=== PATIENT | female | born 1975 | race Caucasian/White ===

== ENCOUNTER 2016-07-30 08:19 | Emergency (ER) | payer OTHER ==
[2016-07-30] MEDS ORDERED: BUPR100T7 PO (08:43)
[2016-07-30] MEDS ORDERED: GABA-585 PO (08:44)
[2016-07-30] MEDS ORDERED: HYDR10TA2 PO (08:44)
[2016-07-30] MEDS ORDERED: nasocort (08:45)
[2016-07-30] MEDS ORDERED: LURA40TA PO (08:45)
[2016-07-30] MEDS ORDERED: IBUP600T16 PO (08:49)
--- NOTE | 2016-07-30 08:52 | ED.ADGEN ---
Past History Past Medical History: No Pertinent History Adult General Chief Complaint Chief Complaint R calf pain [facility] HPI Patient is a 41 year old female who presents with R calf pain. Patient states the pain started abruptly after performing yoga maneuver that structure right calf. She's had ongoing pain, not relieved with ibuprofen. She states it feels okay when she lays in bed but when she walks on it it causes the pain to worsen. She had some swelling that improved after wearing compression socks. No history of DVT reported. She had no pain prior to performing the maneuver during yoga. Review of Systems Review of Systems Constitutional: Denies fever or chills [] Eyes: Denies change in visual acuity, redness, or eye pain [] HENT: Denies nasal congestion or sore throat [] Respiratory: Denies cough or shortness of breath [] Cardiovascular: No additional information not addressed in HPI [] GI: Denies abdominal pain, nausea, vomiting, bloody stools or diarrhea [] : Denies dysuria or hematuria [] Musculoskeletal: Denies back pain Integument: Denies rash or skin lesions [] Neurologic: Denies headache, focal weakness or sensory changes [] Allergies Allergies Allergies Coded Allergies Type Severity Reaction Last Updated Verified Penicillins Allergy Unknown 07/30/16 Yes Physical Exam Physical Exam Constitutional: Well developed, well nourished, no acute distress, non-toxic appearance. [] HENT: Normocephalic, atraumatic Eyes: conjunctiva normal, no discharge. [] Neck: Normal range of motion, no tenderness, supple, no stridor. [] Cardiovascular:Heart rate regular with regular rhythm Lungs & Thorax: no resp distress Extremities: RLE without appreciable edema, erythema, or increased warm. proximal calf ttp with passive stretching and palpation, no palpable cords. DP pulse intact, joints FROM, no bony ttp or deformity, wiggles toes. Neurologic: Alert and oriented X 3, normal motor function, normal sensory function, no focal deficits noted. [] Psychologic: Affect normal, judgement normal, mood normal. [] EKG EKG [] Radiology/Procedures Radiology/Procedures [] Course & Med Decision Making Course & Med Decision Making Pertinent Labs and Imaging studies reviewed. (See chart for details) based on history and mechanism, sounds as though pt pulled a muscle. No indication that pt has DVT or at risk for DVT. No need to imaging at this time , recommended RICE therapy, steroids, 2mg valium for muscle relaxer. Stressed importance of returning for reevaluation if pt has worsening symptoms and need to f/u with PCP if symptoms persisted. Offered DVT study at this time, although I think unlikely, and pt declined. Final Impression Final Impression Calf pain with pulled muscle likely[] Problems: Dragon Disclaimer Dragon Disclaimer This electronic medical record was generated, in whole or in part, using a voice recognition dictation system. HEIDI DUMONT MD Jul 30, 2016 08:52
[2016-07-30] MEDS ORDERED: DIAZ2TAB PO (08:53)
[2016-07-30 09:10] VITALS: BP 138/97
== END 2016-07-30 09:10 | disposition home or self-care (01) ==
LOC: ER 08:19
DX: M79.661 Pain in right lower leg (principal); Z88.0 Allergy status to penicillin; X58.XXXA Exposure to other specified factors, initial encounter; Y93.42 Activity, yoga; Y92.89 Other specified places as the place of occurrence of the external cause; Y99.8 Other external cause status
CPT/HCPCS: 99283

== ENCOUNTER 2016-08-25 08:59 | Emergency (ER) | payer OTHER ==
[~2016-08-25] VITALS: Ht 157.5 cm; Wt 70.8 kg
[~2016-08-25 08:59] MED LIST: BUPR100T7 PO; DIAZ2TAB PO; GABA-585 PO; HYDR10TA2 PO; IBUP600T16 PO; LURA40TA PO; nasocort
[2016-08-25 09:05] VITALS: BP 132/82
[2016-08-25] MEDS ORDERED: KETOROLAC 30 MG/ML VIAL. IM ONE (09:45)
--- NOTE | 2016-08-25 10:07 | ED.ADGEN ---
Past History Past Medical History: Bipolar Past Surgical History: , Hysterectomy Alcohol Use: Occasionally Drug Use: None Adult General Chief Complaint Chief Complaint Pt R groin/hip pain HPI HPI Patient is a 41 year old F who presents with R hip/groin pain. She states this AM was walking her [place] dog when pulled then "I did the splits" and fell. Since approx 8am when incident happened now has pain in groin. Able to stand but walking and moving leg hurts. Recently had injury to R calf from yoga and that is better. Pt denies hitting head and no LOC. Pt denies injury elsewhere. Pt no weakness, numbness or tingling in legs. Pt denies back, neck , chest or abdominal pain Review of Systems Review of Systems Constitutional: Denies fever or chills Eyes: Denies change in visual acuity, redness, or eye pain HENT: Denies nasal congestion or sore throat Respiratory: Denies cough or shortness of breath Cardiovascular: No additional information not addressed in HPI GI: Denies abdominal pain, nausea, vomiting, bloody stools or diarrhea : Denies dysuria or hematuria Musculoskeletal: Denies back pain Integument: Denies rash Neurologic: Denies headache, focal weakness or sensory changes Current Medications Current Medications Current Medications Medications (Trade) Dose Ordered Sig/Kenan Start Time Stop Time Status Last Admin Dose Admin Acetaminophen/ Hydrocodone Bitart (Lortab 5/325) 2 tab 1X ONCE 08/25/16 10:30 08/25/16 10:31 DC 08/25/16 10:03 2 TAB Ketorolac Tromethamine (Toradol) 30 mg 1X ONCE 08/25/16 09:45 08/25/16 09:46 DC 08/25/16 09:29 30 MG Allergies Allergies Allergies Coded Allergies Type Severity Reaction Last Updated Verified Penicillins Allergy Unknown 07/30/16 Yes Physical Exam Physical Exam Constitutional: Well developed, well nourished, no acute distress, non-toxic appearance. HENT: Normocephalic, atraumatic Skin: Warm, dry, no erythema, no rash. Back: No tenderness, no CVA tenderness. Extremities: R hip tender anterior, no pubis tenderness, then R groin/muscle tenderness to palpation Vascular DP and PT pulses 2+ Neurologic: Alert and oriented X 3, normal motor function, normal sensory function, no focal deficits noted. Psychologic: Affect normal, judgement normal, mood normal. Current Patient Data Vital Signs Vital Signs Date Time Temp Pulse Resp B/P (MAP) Pulse Ox O2 Delivery O2 Flow Rate FiO2 08/25/16 10:03 16 98 08/25/16 09:05 97.7 88 Room Air EKG EKG [] Radiology/Procedures Radiology/[place] [address] IMAGING REPORT Signed PATIENT: ZONIA VIGIL ACCOUNT: [id number] : 1975 LOCATION: ER AGE: 41 SEX: F EXAM STATUS: DEP ER ORD. PHYSICIAN: BELLA VICTORIA MD REASON: r hip pain, s/p fall PROCEDURE: HIP RIGHT 2V WITH PELVIS Indication: Right hip pain, fall. Time of exam 0933 hours. Femoral acetabular alignment is normal bilaterally. The joint space is well-maintained. The femoral heads and necks appear intact and no fractures are seen. The rami are unremarkable. Impression: No acute bony abnormality is detected. DICTATED AND SIGNED BY: JESSICA CARRILLO MD DATE: 08/25/16 1500 CC: BELLA VICTORIA MD; LI LIEBERMAN DO, MPH ~ [] Course & Med Decision Making Course & Med Decision Making Pertinent Labs and Imaging studies reviewed. (See chart for details) Pt received Toradol IM in ER with little pain relief. Pt then received [place] 5/325 2 tabs in ER Discussed with patient that Xrays negative Clinically and on exam pt has strained groin muscle and hip, neurovascularlly intact Will discharge with Naprosyn and only if needed next 2 days [place] and Valium Stressed importance of follow up Offered pt crutches but pt declined Final Impression Final Impression R hip and groin strain Problems: Dragon Disclaimer Dragon Disclaimer This electronic medical record was generated, in whole or in part, using a voice recognition dictation system. BELLA VICTORIA MD August 25, 2016 10:07
[2016-08-25] MEDS ORDERED: HYDROcodone/APAP 5/325MG 1 TAB TABLET PO ONE (10:30)
--- NOTE | 2016-08-25 15:03 | RAD ---
Indication: Right hip pain, fall. Time of exam 0933 hours. Femoral acetabular alignment is normal bilaterally. The joint space is well-maintained. The femoral heads and necks appear intact and no fractures are seen. The rami are unremarkable. Impression: No acute bony abnormality is detected.
== END 2016-08-25 10:58 | disposition home or self-care (01) ==
LOC: ER 08:59
DX: S39.011A Strain of muscle, fascia and tendon of abdomen, initial encounter (principal); S76.011A Strain of muscle, fascia and tendon of right hip, initial encounter; Z88.0 Allergy status to penicillin; W19.XXXA Unspecified fall, initial encounter; Y93.01 Activity, walking, marching and hiking; Y99.8 Other external cause status; Y92.89 Other specified places as the place of occurrence of the external cause
CPT/HCPCS: 73502; 96372; 99284; J1885

== ENCOUNTER 2016-10-28 11:57 | Emergency (ER) | payer OTHER ==
[~2016-10-28] VITALS: Ht 157.5 cm; Wt 72.5 kg
--- NOTE | 2016-10-28 12:19 | ED.ADGEN ---
Past History Past Medical History: Bipolar Past Surgical History: , Hysterectomy Alcohol Use: Occasionally Drug Use: None Adult General Chief Complaint Chief Complaint Leg pain HPI HPI Patient is a 41 year old female who presents with left blue pain. She states that she has been working out a lot and develop blue splints on bilateral legs and took a day off but then had it again yesterday and then this morning tried to also she states is the left anterior blue that hurts and is a spot about 2 cm in diameter. She states she's been taking 800 mg Motrin the last several days but it has not been controlling her pain. She denies any calf pain tenderness, shortness of breath chest pain. She states otherwise been eating and drinking well without any issues. Review of Systems Review of Systems Constitutional: Denies fever or chills [] Eyes: Denies change in visual acuity, redness, or eye pain [] HENT: Denies nasal congestion or sore throat [] Respiratory: Denies cough or shortness of breath [] Cardiovascular: No additional information not addressed in HPI [] GI: Denies abdominal pain, nausea, vomiting, bloody stools or diarrhea [] : Denies dysuria or hematuria [] Musculoskeletal: Denies back pain, positive for anterior blue pain on the left leg. Integument: Denies rash or skin lesions [] Neurologic: Denies headache, focal weakness or sensory changes [] Endocrine: Denies polyuria or polydipsia [] Allergies Allergies Allergies Coded Allergies Type Severity Reaction Last Updated Verified Penicillins Allergy Unknown 07/30/16 Yes Physical Exam Physical Exam Constitutional: Well developed, well nourished, no acute distress, non-toxic appearance. [] HENT: Normocephalic, atraumatic, bilateral external ears normal, oropharynx moist, no oral exudates, nose normal. [] Eyes: PERRLA, EOMI, conjunctiva normal, no discharge. [] Neck: Normal range of motion, no tenderness, supple, no stridor. [] Cardiovascular:Heart rate regular rhythm, no murmur [] Lungs & Thorax: Bilateral breath sounds clear to auscultation [] Abdomen: Bowel sounds normal, soft, no tenderness, no masses, no pulsatile masses. [] Skin: Warm, dry, no erythema, no rash. [] Back: No tenderness, no CVA tenderness. [] Extremities: Tender palpation anterior blue on the left, no calf tenderness, dorsal pedis pulse 2+, no cyanosis, no clubbing, ROM intact, no edema. [] Neurologic: Alert and oriented X 3, normal motor function, normal sensory function, no focal deficits noted. [] Psychologic: Affect normal, judgement normal, mood normal. [] Current Patient Data Vital Signs Vital Signs Date Time Temp Pulse Resp B/P (MAP) Pulse Ox O2 Delivery O2 Flow Rate FiO2 10/28/16 12:27 98.4 87 20 97 Room Air EKG EKG [] Radiology/Procedures Radiology/Procedures [] Course & Med Decision Making Course & Med Decision Making Pertinent Labs and Imaging studies reviewed. (See chart for details) She has 0 risk factors for a DVT. Is not smoke she's not had a history of DVT, she is not on control pills. Her pain is the anterior tibia which is consistent with her blue splints. She is on Motrin 800 mg 3 times daily she is encouraged to push fluids with this. She's also be discharged with 20 tablets of [place]. She is instructed to rest over the next several days until her blue splint resolved completely. Return precautions given she is agreeable to the plan discharged in stable condition. Final Impression Final Impression Left lower show many pain Problems: Dragon Disclaimer Dragon Disclaimer This electronic medical record was generated, in whole or in part, using a voice recognition dictation system. LEN CURIEL MD Oct 28, 2016 12:19
[2016-10-28 12:27] VITALS: BP 156/97
== END 2016-10-28 12:43 | disposition home or self-care (01) ==
LOC: ER 11:57
DX: M79.662 Pain in left lower leg (principal); F31.9 Bipolar disorder, unspecified; Z88.0 Allergy status to penicillin
CPT/HCPCS: 99283

== ENCOUNTER 2019-06-23 07:25 | Emergency (ER) | payer OTHER ==
[~2019-06-23] VITALS: Ht 157.5 cm; Wt 89.2 kg
[2019-06-23 07:42] VITALS: BP 144/90
--- NOTE | 2019-06-23 07:59 | PHYS DOC ---
Past History Past Medical History: Bipolar, Hypertension Past Surgical History: Cholecystectomy, Hysterectomy, Oophorectomy Alcohol Use: Occasionally Drug Use: None Adult General Chief Complaint Chief Complaint: FEVER [facility] HPI Patient is a 44-year-old female who presented to ER today for evaluation of body aches, flulike symptoms, fever and chill, sore throat started yesterday. Patient denies any abdominal pain, no nausea or vomiting. Patient, no headache, no neck pain. Patient took some ibuprofen at 5 AM this morning. Patient also has dried cough. Patient also complained of left ear pain. Review of Systems Review of Systems ALL other ROS is negative unless otherwise noted in HPI Constitutional: Positive for fever or chills [] Eyes: Denies change in visual acuity, redness, or eye pain [] HENT: Denies nasal congestion. Positive for sorethroat and left ear pain Respiratory: Positive for cough no shortness of air. Cardiovascular: No additional information not addressed in HPI [] GI: Denies abdominal pain, nausea, vomiting, bloody stools or diarrhea [] : Denies dysuria or hematuria [] Musculoskeletal: Positive for back pain or joint pain [] Integument: Denies rash or skin lesions [] Neurologic: Denies headache, focal weakness or sensory changes [] Endocrine: Denies polyuria or polydipsia [] All other systems were reviewed and found to be within normal limits, except as documented in this note. Current Medications Current Medications Current Medications Medications (Trade) Dose Ordered Sig/Kenan Start Time Stop Time Status Last Admin Dose Admin Acetaminophen (Tylenol) 1,000 mg 1X ONCE 06/23/19 08:00 06/23/19 08:01 Allergies Allergies Allergies Coded Allergies Type Severity Reaction Last Updated Verified Penicillins Allergy Unknown 07/30/16 Yes Physical Exam Physical Exam Constitutional: Well developed, well nourished, no acute distress, non-toxic appearance. [] HENT: Normocephalic, atraumatic, bilateral external ears normal, oropharynx moist with erythema, no oral exudates, nose normal. LEFT TM IS BULGING AND ERYTHEMA. Eyes: PERRLA, EOMI, conjunctiva normal, no discharge. [] Neck: Normal range of motion, no tenderness, supple, no stridor. [] Cardiovascular:Heart rate regular rhythm, no murmur [] Lungs & Thorax: Bilateral breath sounds clear to auscultation [] Abdomen: Bowel sounds normal, soft, no tenderness, no masses, no pulsatile masses. [] Skin: Warm, dry, no erythema, no rash. [] Back: No tenderness, no CVA tenderness. [] Extremities: No tenderness, no cyanosis, no clubbing, ROM intact, no edema. [] Neurologic: Alert and oriented X 3, normal motor function, normal sensory function, no focal deficits noted. [] Psychologic: Affect normal, judgement normal, mood normal. [] Current Patient Data Vital Signs Vital Signs Date Time Temp Pulse Resp B/P (MAP) Pulse Ox O2 Delivery O2 Flow Rate FiO2 06/23/19 07:42 99.2 109 16 144/90 (108) 95 Room Air Lab Results Laboratory Tests Test 06/23/19 07:46 Influenza Type A (Rapid) Negative Influenza Type B (Rapid) Negative Current Medications Medications (Trade) Dose Ordered Sig/Kenan Route PRN Reason Start Time Stop Time Status Last Admin Dose Admin Acetaminophen (Tylenol) 1,000 mg 1X ONCE PO 06/23/19 08:00 06/23/19 08:01 DC EKG EKG [] Radiology/Procedures Radiology/Procedures [] Course & Med Decision Making Course & Med Decision Making Pertinent Labs and Imaging studies reviewed. (See chart for details) [] Dragon Disclaimer Dragon Disclaimer This electronic medical record was generated, in whole or in part, using a voice recognition dictation system. Departure Departure: Impression: Primary Impression: Left otitis media Additional Impression: Upper respiratory disease Disposition: HOME, SELF-CARE Condition: STABLE Referrals: LILLIE PORTILLO MD (PCP) FOLLOW UP WITH YOUR DOCTOR THIS WEEK. Patient Instructions: Otitis Media, Adult, Upper Respiratory Infection, Adult Additional Instructions: Thank you for visiting our Emergency Department. We appreciate you trusting us with your care. If any additional problems come up don't hesitate to return to visit us. Please follow up with your primary care provider so they can plan a dditional care if needed and know about the problem that you had. If symptoms worsen come back to the Emergency Department. Any concerning symptoms that start such as chest pain, shortness of air, weakness or numbness on one side of the body, running high fevers or any other concerning symptoms return to the ER. Scripts Azithromycin (ZITHROMAX) 250 Mg Tablet 1 PKG PO UD for OTITIS MEDIA, #6 TAB Prov: KRISTY LYNCH DO 06/23/19 Problem Qualifiers KRISTY LYNCH DO Jun 23, 2019 07:59
[2019-06-23 08:15] LABS: INFLUENZA A PATIENT NEGATIVE (NEGATIVE); INFLUENZA B PATIENT NEGATIVE (NEGATIVE)
[2019-06-23] MEDS: ACETAMINOPHEN 500 MG TABLET PO ONE (08:26)
[2019-06-23] MEDS ORDERED: AZIT250T PO (08:26)
== END 2019-06-23 08:35 | disposition home or self-care (01) ==
LOC: ER 07:25
DX: J06.9 Acute upper respiratory infection, unspecified (principal); H66.92 Otitis media, unspecified, left ear; I10 Essential (primary) hypertension; Z88.0 Allergy status to penicillin
CPT/HCPCS: 87804; 99283

== ENCOUNTER → 2019-09-13 | Day surgery (SDC) | payer OTHER ==
[~2019-09-13] MED LIST changes: +AMLO10TA4 PO; +AZIT250T PO; +BUPR150T15 PO; +CARB200T PO; +CLON1TAB PO; +FAMO-63 PO; +IPRATRPIUM/ALBUTEROL 0.5/2.5MG 3 ML NEBU. NEB PRN; +IV RINGERS SOLUTION,LACTATED 1,000 ML IV SCH; +PROPOFOL 10,000 MCG/ML (20ML) VIAL IV ONE; +ZOLP10TA PO
[2019-09-13 11:56] VITALS: BP 133/96
--- NOTE | 2019-09-14 17:06 | PATHOLOGY ---
[facility] Accession Number: [id number] . 01 Material submitted: . stomach - RANDOM GASTRIC BIOPSIES . 01 Clinical history: . Acid reflux, coughing . 02 Diagnosis: Gastric mucosa, random gastric biopsies: - Chronic gastritis, mild. (JPM:david; 09/14/2019) S 09/14/2019 0903 Local . 02 Comment: Sections of the random gastric biopsy reveal segments of gastric body and gastric antral mucosa. The gastric body mucosa shows superficial congestion and slight chronic inflammation. The gastric antral mucosa shows congestion and mild chronic inflammation. A properly controlled immunoperoxidase stain for Helicobacter is obtained. No Helicobacter organisms are identified. (JPM:david; 09/14/2019) . . Special stain performed: Immunoperoxidase stain for Helicobacter . 02 Electronically signed: . Kieran Carrasco MD, Pathologist NPI- [id number] . 01 Gross description: . The specimen is received in formalin, labeled "Stone, Nevin, random gastric biopsies" and consists of multiple fragments of you tissue measuring 1.6 x 0.3 x 0.2 cm in aggregate which are entirely submitted in A1. ([facility]; 09/13/2019) JFQ/JFQ 09/13/2019 1744 Local . 02 Pathologist provided ICD-10: K29.50 . 02 CPT . 588591, [id number] Specimen Comment: A courtesy copy of this report has been sent to [phone], [phone] Specimen Comment: [id number] Specimen Comment: Report sent to / DR PORTILLO Performed at: [address], [place], [place] [id number] MD Tico Smith MD Phone: [phone] Performed at: 02 [facility] [address] [place], [place] [id number] MD Kieran Carrasco MD Phone: [phone]
== END | disposition home or self-care (01) ==
LOC: SURG 09:33
PROVIDERS: ATTEND Internal Medicine Gastroenterology
DX: R11.2 Nausea with vomiting, unspecified (principal); K20.9 Esophagitis, unspecified; K31.89 Other diseases of stomach and duodenum; R63.4 Abnormal weight loss; Z79.899 Other long term (current) drug therapy; Z88.0 Allergy status to penicillin; K29.70 Gastritis, unspecified, without bleeding
CPT/HCPCS: 43239; 88305; 88342; J2704; J7120; U0003-CS

== ENCOUNTER 2019-09-29 12:44 | Emergency (ER) | payer OTHER ==
[~2019-09-29] VITALS: Ht 157.5 cm; Wt 86.1 kg
[~2019-09-29 12:44] MED LIST changes: -IPRATRPIUM/ALBUTEROL 0.5/2.5MG 3 ML NEBU. NEB PRN; -IV RINGERS SOLUTION,LACTATED 1,000 ML IV SCH; -PROPOFOL 10,000 MCG/ML (20ML) VIAL IV ONE
[2019-09-29] MEDS: IV NORMAL SALINE 1,000ML 1,000 ML IV SCH (13:25)
[2019-09-29] MEDS: KETOROLAC 30 MG/ML VIAL. IVP ONE (13:27)
--- NOTE | 2019-09-29 13:28 | PHYS DOC ---
Past History Past Medical History: Bipolar, Kidney Stones Past Surgical History: Cholecystectomy, , Hysterectomy, Oophorectomy Alcohol Use: Occasionally Drug Use: None General Adult EDM: Chief Complaint: BLOOD IN URINE HPI: HPI: Patient is a 44-year-old female who presents to the emergency department for evaluation. She states that she developed some dysuria yesterday, along with some hematuria this morning and this morning developed flank pain. Her condition and constellation of symptoms feels similar to her prior kidney stones. She has had some nausea but no vomiting. She denies any dizziness or lightheadedness, fevers or chills. There are no alleviating or exacerbating factors to her symptoms. The pain is described as achy and colicky in her left flank area. It radiates towards her left groin area. Review of Systems: Review of Systems: Constitutional: Denies fever or chills Eyes: Denies change in visual acuity HENT: Denies nasal congestion or sore throat Respiratory: Denies cough or shortness of breath Cardiovascular: Denies chest pain or edema GI: Denies abdominal pain, vomiting, bloody stools or diarrhea : D reports dysuria and hematuria and flank pain. Musculoskeletal: Denies back pain or joint pain Integument: Denies rash Neurologic: Denies headache, focal weakness or sensory changes Endocrine: Denies polyuria or polydipsia Lymphatic: Denies swollen glands Psychiatric: Denies depression or anxiety Heart Score: Risk Factors: Risk Factors: DM, Current or recent (<one month) smoker, HTN, HLP, family history of CAD, obesity. Risk Scores: Score 0 - 3: 2.5% MACE over next 6 weeks - Discharge Home Score 4 - 6: 20.3% MACE over next 6 weeks - Admit for Clinical Observation Score 7 - 10: 72.7% MACE over next 6 weeks - Early Invasive Strategies Current Medications: Current Meds: Current Medications Medications (Trade) Dose Ordered Sig/[facility] Start Time Stop Time Status Last Admin Dose Admin Ketorolac Tromethamine (Toradol 30mg Vial) 30 mg 1X ONCE 09/29/19 13:15 09/29/19 13:17 DC Sodium Chloride 1,000 ml @ 1,000 mls/hr Q1H 09/29/19 13:06 09/29/19 14:05 Allergies: Allergies: Allergies Coded Allergies Type Severity Reaction Last Updated Verified Penicillins Allergy Unknown 09/29/19 Yes Physical Exam: PE: PHYSICAL EXAM: CONSTITUTIONAL: Well developed, well nourished HEAD: normocephalic, atraumatic EENT: PERRL, EOMI. Conjunctivae normal color, sclerae non-icteric; moist mucous membranes. NECK: Supple, non-tender; no meningismus. LUNGS: Lungs CTA, breathing even and unlabored. Normal air movement. HEART: Regular rate and rhythm, no murmur CHEST: No deformity; non-tender ABDOMEN: The abdomen is soft, there is tenderness to palpation of the left mid and lower abdomen without rebound or guarding. The remainder the abdomen is soft and non-tender, no masses or bruits. EXTREM: Normal ROM; no deformity, no calf tenderness. Normal pulses palpable in all extremities. There is no pedal edema. SKIN: No rash; no diaphoresis NEURO: Alert; normal speech and cognition; CN's grossly intact; strength grossly intact without focal deficit. 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 Current Patient Data: Labs: Laboratory Tests Test 09/29/19 13:00 09/29/19 13:21 Urine Collection Type Unknown Urine Color Yellow Urine Clarity Hazy Urine pH 7.5 Urine Specific [place] 1.020 Urine Protein Neg Urine Glucose (UA) Neg mg/dL Urine Ketones (Stick) Neg mg/dL Urine Blood Neg Urine Nitrite Neg Urine Bilirubin Neg Urine Urobilinogen Dipstick 0.2 mg/dL Urine Leukocyte Esterase Trace Urine RBC 3-5 /HPF Urine WBC 20-40 /HPF Urine Squamous Epithelial Cells Many /LPF Urine Bacteria Many /HPF White Blood Count 5.5 x10^3/uL Red Blood Count 4.59 x10^6/uL Hemoglobin 14.3 g/dL Hematocrit 42.2 % Mean Corpuscular Volume 92 fL Mean Corpuscular Hemoglobin 31 pg Mean Corpuscular Hemoglobin Concent 34 g/dL Red Cell Distribution Width 12.9 % Platelet Count 275 x10^3/uL Neutrophils (%) (Auto) 60 % Lymphocytes (%) (Auto) 29 % Monocytes (%) (Auto) 8 % Eosinophils (%) (Auto) 2 % Basophils (%) (Auto) 1 % Neutrophils # (Auto) 3.3 x10^3uL Lymphocytes # (Auto) 1.6 x10^3/uL Monocytes # (Auto) 0.4 x10^3/uL Eosinophils # (Auto) 0.1 x10^3/uL Basophils # (Auto) 0.1 x10^3/uL Sodium Level 140 mmol/L Potassium Level 4.0 mmol/L Chloride Level 104 mmol/L Carbon Dioxide Level 26 mmol/L Anion Gap 10 Blood Urea Nitrogen 13 mg/dL Creatinine 0.8 mg/dL Estimated GFR (Cockcroft-Gault) 78.7 BUN/Creatinine Ratio 16 Glucose Level 89 mg/dL Calcium Level 8.7 mg/dL Total Bilirubin 0.2 mg/dL Aspartate Amino Transf (AST/SGOT) 16 U/L Alanine Aminotransferase (ALT/SGPT) 28 U/L Alkaline Phosphatase 107 U/L Total Protein 6.8 g/dL Albumin 3.6 g/dL Albumin/Globulin Ratio 1.1 Lipase 87 U/L Current Medications Medications (Trade) Dose Ordered Sig/[facility] Route PRN Reason Start Time Stop Time Status Last Admin Dose Admin Sodium Chloride 1,000 ml @ 1,000 mls/hr Q1H IV 09/29/19 13:06 09/29/19 14:05 09/29/19 13:25 Ketorolac Tromethamine (Toradol 30mg Vial) 30 mg 1X ONCE IVP 09/29/19 13:15 09/29/19 13:17 DC 09/29/19 13:27 Vital Signs: Vital Signs Date Time Temp Pulse Resp B/P (MAP) Pulse Ox O2 Delivery O2 Flow Rate FiO2 09/29/19 12:45 98.4 92 18 145/100 (115) 98 Room Air EKG: EKG: [] Radiology/Procedures: Radiology/Procedures: PROCEDURE: CT ABDOMEN PELVIS WO CONTRAST EXAM: CT Abdomen and Pelvis without IV contrast INDICATION: Reason: L lfank pain, hematuria / Spl. Instructions: / History: TECHNIQUE: Multi-detector row CT images were acquired from the lung bases through the abdomen and pelvis without the use of IV contrast. Sagittal and coronal images were acquired from the transaxial data. All CT scans performed at this facility utilize dose optimization techniques as appropriate to the exam, including the following: Automated exposure control and adjustment of the mA and/or KV according to patient size (this includes techniques or standardized protocols for targeted exams where dose is indication/reason for exam). ORAL CONTRAST: None COMPARISON: None FINDINGS: The absence of IV contrast limits evaluation of soft tissue pathology. LOWER CHEST: Unremarkable LIVER: Numerous subcentimeter hypodense lesions throughout the liver are present, statistically likely to be cysts but incompletely characterized on single phase noncontrast CT. BILIARY SYSTEM: Gallbladder is unremarkable. Bile ducts are not dilated. PANCREAS: Unremarkable SPLEEN: Unremarkable ADRENALS: Unremarkable KIDNEYS & URETERS: Hypodense 1.5 cm lesion in the midpole right kidney is incompletely characterized on this single phase examination but is statistically likely to represent a cyst. No imaging follow-up is recommended. There is no hydronephrosis or evidence of radiopaque stones in the urinary tract. There is linear hyperdensity in the superior pole left kidney, favored to represent calcium deposition. The distal left ureter is courses around the left ovary shows minimal adjacent extraperitoneal fat stranding. BLADDER: Collapsed with mild diffuse wall thickening present. REPRODUCTIVE ORGANS: The uterus is absent. The right ovary is not seen and may be surgically absent as well. The left ovary demonstrates at least 2 dominant follicles measuring 1.8 and 1.7 cm. GASTROINTESTINAL: Stomach and small bowel are unremarkable. The large bowel demonstrates extensive fibrofatty infiltration of the large bowel wall (the "fat halo" sign) with varying degrees of wall thickening but no pericolonic soft tissue stranding. No mesenteric hyperemia. The appendix is normal. MESENTERY/PERITONEUM/RETROPERITONEUM: Unremarkable VASCULAR: Unremarkable LYMPH NODES: No adenopathy OSSEOUS & SOFT TISSUES: Unremarkable IMPRESSION: 1. Mild wall thickening in the underdistended urinary bladder. Correlate for cystitis. Otherwise no specific findings to explain hematuria and left flank pain are identified with no radiopaque stones or evidence of obstructive uropathy in the urinary tract. 2. Fibrofatty infiltration of the linares of the large bowel are findings suggestive of chronic inflammatory bowel disease versus sequelae of obesity. [] Course & Med Decision Making: Course & Med Decision Making Pertinent Labs and Imaging studies reviewed. (See chart for details) [] 2:00 PM: Patient remains stable. I discussed test results, the need for close follow-up, and return precautions. Eboni Disclaimer: Eboni Disclaimer: This electronic medical record was generated, in whole or in part, using a voice recognition dictation system. Departure Departure: Impression: Primary Impression: Urinary tract infection Disposition: 01 HOME/RESIDENCE PRIOR TO ADM Condition: STABLE Referrals: LILLIE PORTILLO MD (PCP) Patient Instructions: Urinary Tract Infection Scripts Sulfamethoxazole/Trimethoprim (BACTRIM 400-80 MG TABLET) 1 Each Tablet 1 TAB PO BID for - for 7 Days, #14 TAB 0 Refills Prov: GANESH POST MD 09/29/19 Justification of Admission: Justification of Admission: Justification of Admission Dx: N/A GANESH POST MD Sep 29, 2019 13:28
[2019-09-29 13:29] VITALS: BP 125/82
--- NOTE | 2019-09-29 13:33 | RAD ---
EXAM: CT Abdomen and Pelvis without IV contrast INDICATION: Reason: L lfank pain, hematuria / Spl. Instructions: / History: TECHNIQUE: Multi-detector row CT images were acquired from the lung bases through the abdomen and pelvis without the use of IV contrast. Sagittal and coronal images were acquired from the transaxial data. All CT scans performed at this facility utilize dose optimization techniques as appropriate to the exam, including the following: Automated exposure control and adjustment of the mA and/or KV according to patient size (this includes techniques or standardized protocols for targeted exams where dose is indication/reason for exam). ORAL CONTRAST: None COMPARISON: None FINDINGS: The absence of IV contrast limits evaluation of soft tissue pathology. LOWER CHEST: Unremarkable LIVER: Numerous subcentimeter hypodense lesions throughout the liver are present, statistically likely to be cysts but incompletely characterized on single phase noncontrast CT. BILIARY SYSTEM: Gallbladder is unremarkable. Bile ducts are not dilated. PANCREAS: Unremarkable SPLEEN: Unremarkable ADRENALS: Unremarkable KIDNEYS & URETERS: Hypodense 1.5 cm lesion in the midpole right kidney is incompletely characterized on this single phase examination but is statistically likely to represent a cyst. No imaging follow-up is recommended. There is no hydronephrosis or evidence of radiopaque stones in the urinary tract. There is linear hyperdensity in the superior pole left kidney, favored to represent calcium deposition. The distal left ureter is courses around the left ovary shows minimal adjacent extraperitoneal fat stranding. BLADDER: Collapsed with mild diffuse wall thickening present. REPRODUCTIVE ORGANS: The uterus is absent. The right ovary is not seen and may be surgically absent as well. The left ovary demonstrates at least 2 dominant follicles measuring 1.8 and 1.7 cm. GASTROINTESTINAL: Stomach and small bowel are unremarkable. The large bowel demonstrates extensive fibrofatty infiltration of the large bowel wall (the "fat halo" sign) with varying degrees of wall thickening but no pericolonic soft tissue stranding. No mesenteric hyperemia. The appendix is normal. MESENTERY/PERITONEUM/RETROPERITONEUM: Unremarkable VASCULAR: Unremarkable LYMPH NODES: No adenopathy OSSEOUS & SOFT TISSUES: Unremarkable IMPRESSION: 1. Mild wall thickening in the underdistended urinary bladder. Correlate for cystitis. Otherwise no specific findings to explain hematuria and left flank pain are identified with no radiopaque stones or evidence of obstructive uropathy in the urinary tract. 2. Fibrofatty infiltration of the linares of the large bowel are findings suggestive of chronic inflammatory bowel disease versus sequelae of obesity. Electronically signed by: Nikki Almonte MD (09/29/2019 1:30 PM) [id number]
[2019-09-29 13:37] LABS: BASO # 0.1 x10^3/uL (0.0-0.2); BASO % 1 % (0-3); EOS # 0.1 x10^3/uL (0.0-0.7); EOS % 2 % (0-3); HEMATOCRIT 42.2 % (36.0-47.0); HEMOGLOBIN 14.3 g/dL (12.0-15.5); LYMPH # 1.6 x10^3/uL (1.0-4.8); LYMPH % 29 % (24-48); MEAN CORPUSCULAR HEMOGLOBIN 31 pg (25-35); MEAN CORPUSCULAR HGB CONC 34 g/dL (31-37); MEAN CORPUSCULAR VOLUME 92 fL (79-100); MONO # 0.4 x10^3/uL (0.0-1.1); MONO % 8 % (0-9); NEUT # 3.3 x10^3uL (1.8-7.7); NEUT % 60 % (31-73); PLATELET COUNT 275 x10^3/uL (140-400); RED BLOOD COUNT 4.59 x10^6/uL (3.50-5.40); RED CELL DISTRIBUTION WIDTH 12.9 % (11.5-14.5); WHITE BLOOD COUNT 5.5 x10^3/uL (4.0-11.0)
[2019-09-29 13:43] LABS: CALCIUM 8.7 mg/dL (8.5-10.1); CREATININE 0.8 mg/dL (0.6-1.0); GFR 78.7
[2019-09-29 13:47] LABS: BACTERIA,URINE MANY /HPF (0-FEW); BILIRUBIN,URINE NEG (NEG); CLARITY,URINE HAZY; COLOR,URINE YELLOW; GLUCOSE,URINE NEG (NEG); NITRITE,URINE NEG (NEG); SQUAMOUS EPITHELIAL CELL,UR MANY /LPF; UROBILINOGEN,URINE 0.2 mg/dL (0.2 mg/dL); WBC,URINE 20-40 /HPF (0-4)
[2019-09-29 13:49] LABS: ALBUMIN 3.6 g/dL (3.4-5.0); ALBUMIN/GLOBULIN RATIO 1.1 (1.0-1.7); TOTAL BILIRUBIN 0.2 mg/dL (0.2-1.0); TOTAL PROTEIN 6.8 g/dL (6.4-8.2)
[2019-09-29] MEDS ORDERED: SULF1TAB23 PO (14:07)
[2019-09-29] MEDS ORDERED: IV NORMAL SALINE 50ML 50 ML ONE (14:31)
[2019-09-29] MEDS ORDERED: cefTRIAXone SODIUM 1 GM VIAL ONE (14:31)
== END 2019-09-29 15:08 | disposition home or self-care (01) ==
LOC: ER 12:44
DX: N39.0 Urinary tract infection, site not specified (principal); Z87.442 Personal history of urinary calculi; Z90.49 Acquired absence of other specified parts of digestive tract; Z98.890 Other specified postprocedural states; Z90.710 Acquired absence of both cervix and uterus; Z90.722 Acquired absence of ovaries, bilateral; Z88.0 Allergy status to penicillin
CPT/HCPCS: 36415; 74176; 80053; 81001; 83690; 85025; 87086; 96365; 96375; 99284; J0696; J1885; J7030